=== PATIENT | male | born 1960 | race Caucasian/White ===

== ENCOUNTER 2022-12-21 09:28 | Outpatient (CLI) | payer OTHER ==
[~2022-12-21 09:28] MED LIST: DOLOGEN CAPLET1 EACH PO; PERCOCET 5/321 UDTAB PO
== END 2022-12-21 09:33 | disposition home or self-care (01) ==
LOC: LAB 09:28
PROVIDERS: ATTEND Urology
DX: C61 Malignant neoplasm of prostate (principal)

== ENCOUNTER 2024-04-10 09:16 | Outpatient (CLI) | payer OTHER ==
[2024-04-10 11:13] LABS: URINE APPEARANCE Clear; URINE BILIRRUBIN Negative (NEGATIVE); URINE BLOOD Trace; URINE COLOR Yellow; URINE GLUCOSE Negative (NEGATIVE); URINE KETONE Negative (NEGATIVE); URINE LEUKOCYTE Negative; URINE NITRATE Negative; URINE PROTEIN Negative (NEGATIVE); URINE UROBILINOGEN 0.2 E.U./dl
[2024-04-10 11:17] LABS: URINE RBC 9.7 uL (0.0-20.8)
[2024-04-10 12:40] LABS: URINE BACTERIA 1.2 uL (0.0-1933); URINE EPITHELIAL CELLS 0.6 uL (0.0-38.8); URINE WBC 0.9 uL (0.0-23.2)
== END 2024-04-10 09:18 | disposition home or self-care (01) ==
LOC: LAB 09:16
PROVIDERS: ATTEND Urology
DX: C61 Malignant neoplasm of prostate (principal)

== ENCOUNTER 2025-04-09 10:24 | Outpatient (CLI) | payer OTHER ==
[2025-04-09 11:32] LABS: URINE APPEARANCE Clear; URINE BILIRRUBIN Negative (NEGATIVE); URINE BLOOD Trace; URINE COLOR Yellow; URINE GLUCOSE Negative (NEGATIVE); URINE KETONE Negative (NEGATIVE); URINE LEUKOCYTE Negative; URINE NITRATE Negative; URINE PROTEIN Negative (NEGATIVE); URINE UROBILINOGEN 1.0 E.U./dl
[2025-04-09 11:36] LABS: URINE RBC 9.5 uL (0.0-20.8)
[2025-04-09 11:44] LABS: URINE BACTERIA 1.1 uL (0.0-1933); URINE CAST 0.14 uL (0.0-1.40); URINE EPITHELIAL CELLS 0.7 uL (0.0-38.8); URINE WBC 1.5 uL (0.0-23.2)
== END 2025-04-09 10:35 | disposition home or self-care (01) ==
LOC: LAB 10:24
PROVIDERS: ATTEND Urology
DX: C61 Malignant neoplasm of prostate (principal)